=== PATIENT | male | born 1990 | race Two or more races ===

== ENCOUNTER 2019-06-12 19:40 | Emergency (ER) | payer SELFPAY ==
[~2019-06-12] VITALS: Ht 170.2 cm; Wt 83.0 kg
[2019-06-12] MEDS ORDERED: ONDANSETRON HCL 4MG/2ML INJ IV STA (20:28)
[2019-06-12] MEDS ORDERED: SODIUM CHLORIDE 0.9% 1,000 ML IV ONE (20:28)
[2019-06-12] MEDS ORDERED: LORAZEPAM 2MG/ML CPJ IV ONE (20:30)
[2019-06-12 21:22] LABS: CLARITY URINE CLEAR (CLEAR); COLOR URINE YELLOW (YELLOW); KETONES URINE TRACE (NEGATIVE); LEUKOCYTE ESTERASE URINE NEGATIVE (NEGATIVE); NITRITE URINE NEGATIVE (NEGATIVE); OCCULT BLOOD URINE NEGATIVE (NEGATIVE); PROTEIN URINE NEGATIVE (NEGATIVE); SPECIFIC GRAVITY URINE 1.029 (1.005-1.030); UROBILINOGEN URINE 0.2 E.U./dL (0.2-1.0)
[2019-06-12 21:33] LABS: BASOPHILS % 0.3 % (0.0-2.0); EOSINOPHILS % 0.3 % (0.0-5.0); HEMATOCRIT. 49.2 % (42.0-52.0); LYMPHOCYTES % 22.7 % (20.0-50.0); MEAN CORPUSCULAR HEMOGLOBIN 31.5 pg (28.0-32.0); MEAN CORPUSCULAR VOLUME 91.1 fL (80.0-94.0); MEAN PLATELET VOLUME 8.5 fl (7.4-10.4); MONOCYTES % 7.2 % (2.0-8.0); NEUTROPHILS % 69.5 % (40.0-76.0); PLATELET 224 x1000/uL (130-400); RED CELL DISTRIBUTION WIDTH 13.9 % (11.6-14.6)
[2019-06-12 21:36] LABS: CHLORIDE 104 mEq/L (98-107)
[2019-06-12 21:39] LABS: *AMPHETAMINES SCREEN URINE NEGATIVE (NEGATIVE); *BARBITURATES SCREEN URINE NEGATIVE (NEGATIVE); *BENZODIAZEPINES SCREEN URINE NEGATIVE (NEGATIVE); *COCAINE SCREEN URINE NEGATIVE (NEGATIVE); METHADONE URINE SCREEN NEGATIVE (NEGATIVE)
[2019-06-12 21:40] LABS: CANNABINOID URINE SCREEN NEGATIVE (NEGATIVE); OPIATES URINE SCREEN NEGATIVE (NEGATIVE); PHENCYCLIDINE URINE SCREEN NEGATIVE (NEGATIVE)
[2019-06-12 21:40] LABS: ETHANOL BLOOD < 10 mg/dL
[2019-06-12 21:45] LABS: CREATINE KINASE 217 IU/L (39-308)
[2019-06-12 21:47] LABS: CREATINE KINASE MB FRACTION 1.2 ng/mL (0.5-3.6)
[2019-06-13 02:18] VITALS: BP 119/81
== END 2019-06-13 02:35 | disposition home or self-care (01) ==
LOC: ER 19:40
DX: R00.2 Palpitations (principal); R53.1 Weakness
CPT/HCPCS: 36415; 71045; 80053; 80305; 80320; 81003; 82550; 82553; 84443; 84484; 85025; 93005; 96374; 96375; 99284; J2060; J2405; J7030; G0480

== ENCOUNTER 2021-01-11 06:27 | Emergency (ER) | payer MEDICAID, OTHER ==
[~2021-01-11] VITALS: Ht 175.3 cm; Wt 82.0 kg
[2021-01-11] MEDS ORDERED: OLANZAPINE 10 MG/VIAL IM ONE (07:15)
[2021-01-11 07:46] LABS: BASOPHILS % 0.5 % (0.0-2.0); HEMATOCRIT. 43.3 % (42.0-52.0); LYMPHOCYTES % 24.7 % (20.0-50.0); MEAN CORPUSCULAR HEMOGLOBIN 31.6 pg (28.0-32.0); MEAN CORPUSCULAR VOLUME 91.3 fL (80.0-94.0); MEAN PLATELET VOLUME 7.9 fl (7.4-10.4); MONOCYTES % 6.8 % (2.0-8.0); PLATELET 199 x1000/uL (130-400); RED BLOOD CELL COUNT 4.74 mill/uL (4.7-6.1); RED CELL DISTRIBUTION WIDTH 13.5 % (11.6-14.6)
[2021-01-11 07:53] LABS: CHLORIDE 107 mEq/L (98-107)
[2021-01-11 07:57] LABS: ETHANOL BLOOD < 10 mg/dL
[2021-01-11 09:13] LABS: CLARITY URINE CLEAR (CLEAR); COLOR URINE YELLOW (YELLOW); KETONES URINE NEGATIVE (NEGATIVE); LEUKOCYTE ESTERASE URINE NEGATIVE (NEGATIVE); NITRITE URINE NEGATIVE (NEGATIVE); OCCULT BLOOD URINE NEGATIVE (NEGATIVE); PROTEIN URINE NEGATIVE (NEGATIVE); SPECIFIC GRAVITY URINE 1.008 (1.005-1.030); UROBILINOGEN URINE 0.2 E.U./dL (0.2-1.0)
[2021-01-11 09:24] LABS: *AMPHETAMINES SCREEN URINE NEGATIVE (NEGATIVE); *BARBITURATES SCREEN URINE NEGATIVE (NEGATIVE); *BENZODIAZEPINES SCREEN URINE NEGATIVE (NEGATIVE); *COCAINE SCREEN URINE NEGATIVE (NEGATIVE)
[2021-01-11 09:25] LABS: CANNABINOID URINE SCREEN NEGATIVE (NEGATIVE); METHADONE URINE SCREEN NEGATIVE (NEGATIVE); OPIATES URINE SCREEN NEGATIVE (NEGATIVE); PHENCYCLIDINE URINE SCREEN NEGATIVE (NEGATIVE)
[2021-01-12 18:05] VITALS: BP 110/57
== END 2021-01-12 18:25 ==
LOC: ER 06:34
DX: R45.1 Restlessness and agitation (principal); Z20.822 Contact with and (suspected) exposure to COVID-19; R46.1 Bizarre personal appearance; R46.2 Strange and inexplicable behavior
CPT/HCPCS: 36415; 80053; 80305; 80307; 80320; 80329; 81003; 85025; 87426; 96372; 99285; C9803; J3490; U0003; U0005; Z7610; G0480